=== PATIENT | male | born 1955 | race Asian ===

== ENCOUNTER 2021-04-16 17:37 | Outpatient (REF) | payer OTHER, SELFPAY ==
[2021-04-16 18:33] LABS: Influenza A PCR NEGATIVE (Negative); Influenza B PCR NEGATIVE (Negative); Resp Syncy Virus RNA Qual PCR NEGATIVE (Negative); SARS COV2 PCR INHOUSE NEGATIVE (Negative)
== END 2021-04-16 17:38 | disposition home or self-care (01) ==
LOC: HO.LAB 17:37
PROVIDERS: Internal Medicine; Visit Provider Internal Medicine
DX: Z20.822 Contact with and (suspected) exposure to COVID-19 (principal); R05.9 Cough, unspecified; R50.9 Fever, unspecified
CPT/HCPCS: 0241U; 36415